=== PATIENT | male | born 1985 | race Caucasian/White ===

== ENCOUNTER 2018-09-07 16:31 | Emergency (ER) | payer SELFPAY ==
[2018-09-07] MEDS ORDERED: Lidocaine 1% INJ* 10 MG/ML 30 ML SDV INJ ONE (16:49)
--- NOTE | 2018-09-07 16:53 | ED ---
Throat Pain/Nasal Congestion - HPI Summary HPI Summary: 33-year-old male presents with swelling on left ear for the past week. He was seen at a Hospital and the area was drained. It was better but now is getting worse. He states it stopped draining anything. Denies any fevers chills. Denies any history of MRSA. Has no medical conditions. Tetanus up-to-date. states that it is interfering with his hearing. - History of Current Complaint Chief Complaint: EDEarPain Time Seen by Provider: 09/07/18 16:45 - Allergies/Home Medications Allergies/Adverse Reactions: Allergies Allergy/AdvReac Type Severity Reaction Status Date / Time No Known Allergies Allergy Verified 09/07/18 16:35 PMH/Surg Hx/FS Hx/Imm Hx Endocrine/Hematology History: Denies: Hx Anticoagulant Therapy Respiratory History: Denies: Hx Asthma - Cancer History Cancer Type, Location and Year: colon polyps Infectious Disease History: No Infectious Disease History: Denies: Traveled Outside the [place] in Last 30 Days - Family History Known Family History: Positive: Non-Contributory - Social History Alcohol Use: Rare Substance Use Type: Reports: None Smoking Status (MU): Never Smoked Tobacco Review of Systems Negative: Fever Negative: Chest Pain Negative: Shortness Of Breath Positive: Other - abscess left ear All Other Systems Reviewed And Are Negative: Yes Physical Exam Triage Information Reviewed: Yes Vital Signs On Initial Exam: Initial Vitals Temp Pulse Resp BP Pulse Ox 98.0 F 79 19 157/94 97 09/07/18 16:32 09/07/18 16:32 09/07/18 16:32 09/07/18 16:32 09/07/18 16:32 Vital Signs Reviewed: Yes Appearance: Positive: Well-Appearing Skin: Positive: Warm, Dry, Other - abscess to left ear Head/Face: Positive: Normal Head/Face Inspection Eyes: Positive: Normal, EOMI, JOSE, Conjunctiva Clear ENT: Positive: Normal ENT inspection, Pharynx normal, TMs normal Respiratory/Lung Sounds: Positive: Clear to Auscultation, Breath Sounds Present Cardiovascular: Positive: Normal, RRR Musculoskeletal: Positive: Normal Neurological: Positive: Normal Psychiatric: Positive: Normal Procedures - Incision and Drainage left ear Site: left ear Anesthesia: Local Instrument(s): Scalpel Diagnostics - Vital Signs Vital Signs Temp Pulse Resp BP Pulse Ox 09/07/18 16:32 98.0 F 79 19 157/94 97 - Laboratory Lab Statement: Any lab studies that have been ordered have been reviewed, and results considered in the medical decision making process. EENT Course/Dx - Course Course Of Treatment: 33-year-old male presents with swelling on left ear for the past week. He was seen at a Hospital and the area was drained. It was better but now is getting worse. He states it stopped draining anything. Denies any fevers chills. Denies any history of MRSA. Has no medical conditions. Tetanus up-to-date. states that it is interfering with his hearing. On exam has swelling noted on left ear. Performed a digital block and made incision. drainage was blood and may have had some clear liquid. this appears to be more like hematoma than abscess. applied pressure dressing. will place on clindamycin in case is infected. told follow up with dermatology. patient understand and agrees with plan. - Differential Diagnoses Differential Diagnoses: Other - abscess, hematoma, cellulitis - Diagnoses Provider Diagnoses: Ear hematoma, left Discharge - Sign-Out/Discharge Documenting (check all that apply): Patient Departure Patient Received Moderate/Deep Sedation with Procedure: No - Discharge Plan Condition: Good Disposition: HOME Prescriptions: Clindamycin Cap(NF) [Clindamycin Cap 300 mg Cap(NF)] 300 mg PO TID #29 cap Patient Education Materials: Hematoma (ED) Referrals: No Primary Care Phys,NOPCP [Primary Care Provider] - Additional Instructions: Take antibiotic three a day for 10 days, first dose given in ED keep compression on area for two days Take ibuprofen or Tylenol for pain every 6 hours Follow up with dermatology Return to ED if develop fever, area of redness spreads, or any new or worsening symptoms - Billing Disposition and Condition Condition: GOOD Disposition: Home
[2018-09-07] MEDS ORDERED: Clindamycin CAP* 150 MG PO ONE (17:13)
[2018-09-07 17:58] VITALS: BP 132/67
== END 2018-09-07 17:00 | disposition home or self-care (01) ==
LOC: ED 16:31
DX: S00.432A Contusion of left ear, initial encounter (principal); X58.XXXA Exposure to other specified factors, initial encounter
CPT/HCPCS: 10060; 87070; 87205; 96372; 99282; A9270-GY

== ENCOUNTER 2018-09-09 16:32 | Emergency (ER) | payer SELFPAY ==
--- NOTE | 2018-09-09 18:25 | ED ---
Throat Pain/Nasal Congestion - HPI Summary HPI Summary: Patient complains of abscess on external left ear 2 weeks. Patient states it has been drained twice in that time with one course of Keflex but abscess returns. Patient started on clindamycin today for same. Denies fever, cough, sore throat, CP, SOB, N/V/D, developing, change in urine, change in BM. Medical history is none. - History of Current Complaint Chief Complaint: EDEarPain Time Seen by Provider: 09/09/18 17:40 Hx Obtained From: Patient Onset/Duration: Gradual Onset, Lasting Weeks Severity: Mild Associated Signs And Symptoms: Positive: Negative Cough: None - Allergies/Home Medications Allergies/Adverse Reactions: Allergies Allergy/AdvReac Type Severity Reaction Status Date / Time No Known Allergies Allergy Verified 09/07/18 16:35 PMH/Surg Hx/FS Hx/Imm Hx Endocrine/Hematology History: Denies: Hx Anticoagulant Therapy Respiratory History: Denies: Hx Asthma History: Denies: Hx Dialysis Sensory History: Denies: Hx Eye Prosthesis Opthamlomology History: Denies: Hx Legally Blind EENT History: Denies: Hx Deafness Neurological History: Denies: Hx Developmental Delay - Cancer History Cancer Type, Location and Year: colon polyps Infectious Disease History: No Infectious Disease History: Denies: Traveled Outside the [place] in Last 30 Days - Family History Known Family History: Positive: Non-Contributory - Social History Alcohol Use: Rare Substance Use Type: Reports: None Smoking Status (MU): Heavy Every Day Tobacco Smoker Review of Systems Constitutional: Negative Eyes: Negative Positive: Other Cardiovascular: Negative Respiratory: Negative Gastrointestinal: Negative Genitourinary: Negative Musculoskeletal: Negative Skin: Negative Neurological: Negative Psychological: Normal All Other Systems Reviewed And Are Negative: Yes Physical Exam - Summary Physical Exam Summary: 2 cm x 2 cm in abscess on external left ear medial to auricle. Hearing intact. No purulent drainage. Mastoid is normal appearance. Ear canal exam normal. Triage Information Reviewed: Yes Vital Signs On Initial Exam: Initial Vitals Temp Pulse Resp BP Pulse Ox 99.7 F 68 16 135/91 97 09/09/18 16:38 09/09/18 16:38 09/09/18 16:38 09/09/18 16:38 09/09/18 16:38 Vital Signs Reviewed: Yes Appearance: Positive: Well-Appearing Skin: Positive: Warm Head/Face: Positive: Normal Head/Face Inspection Eyes: Positive: Normal ENT: Positive: Normal ENT inspection Neck: Positive: Supple Respiratory/Lung Sounds: Positive: Clear to Auscultation Cardiovascular: Positive: Normal Abdomen Description: Positive: Nontender Musculoskeletal: Positive: Normal Neurological: Positive: Normal Psychiatric: Positive: Normal AVPU Assessment: Alert - [place] Coma Scale Best Eye Response: 4 - Spontaneous Best Motor Response: 6 - Obeys Commands Best Verbal Response: 5 - Oriented Coma Scale Total: 15 Diagnostics - Vital Signs Vital Signs Temp Pulse Resp BP Pulse Ox 09/09/18 16:38 99.7 F 68 16 135/91 97 - Laboratory Lab Statement: Any lab studies that have been ordered have been reviewed, and results considered in the medical decision making process. EENT Course/Dx - Course Course Of Treatment: Patient complains of abscess on external left ear 2 weeks. Patient states it has been drained twice in that time with one course of Keflex but abscess returns. Patient started on clindamycin today for same. Denies fever, cough, sore throat, CP, SOB, N/V/D, developing, change in urine, change in BM. Medical history is none. Vital signs within normal limits. Patient opted to not have I&D at this time we'll continue with clindamycin. Patient understands he will return for worsening symptoms. - Diagnoses Provider Diagnoses: Abscess Discharge - Sign-Out/Discharge Documenting (check all that apply): Patient Departure Patient Received Moderate/Deep Sedation with Procedure: No - Discharge Plan Condition: Stable Disposition: HOME Patient Education Materials: Abscess (ED) Referrals: No Primary Care Phys,NOPCP [Primary Care Provider] - Additional Instructions: Continue to take antibiotics. Return to the ED for any new or worsening symptoms. - Billing Disposition and Condition Condition: STABLE Disposition: Home
[2018-09-09 18:31] VITALS: BP 145/83
== END 2018-09-09 18:30 | disposition home or self-care (01) ==
LOC: ED 16:32
DX: H60.02 Abscess of left external ear (principal); F17.200 Nicotine dependence, unspecified, uncomplicated
CPT/HCPCS: 99282

== ENCOUNTER 2018-09-11 16:55 | Emergency (ER) | payer SELFPAY ==
[2018-09-11 17:01] VITALS: BP 149/93
== END 2018-09-11 17:51 | disposition left against medical advice (07) ==
LOC: ED 16:55
DX: H93.8X2 Other specified disorders of left ear (principal); Z53.21 Procedure and treatment not carried out due to patient leaving prior to being seen by health care provider

== ENCOUNTER 2018-09-11 20:09 | Emergency (ER) | payer SELFPAY ==
[2018-09-11] MEDS ORDERED: Lidocaine 1% MPF* 2 ML VIAL INJ ONE (21:38)
[2018-09-11] MEDS ORDERED: Lidocaine 1% MPF ** 5 ML VIAL ONE (21:42)
[2018-09-11] MEDS ORDERED: Lidocaine 1% MPF ** 5 ML VIAL INJ ONE (22:22)
--- NOTE | 2018-09-11 22:41 | ED ---
Skin Complaint - HPI Summary HPI Summary: 33-year-old male presents with complaints of persistent swelling of his left earlobe. Patient was seen at this facility on 09/07/2018 began on 09/09/2018 for the same. He states symptoms initially began 2 weeks ago and he was evaluated at [facility] in [facility] where he was treated for an abscess of the left earlobe. He states that an I&D was performed and he was started on cephalexin at that time. States symptoms were improving after about a week started developing increased swelling again. On 09/07/2018 a second incision and drainage was performed. Some clear/bloody drainage was obtained and it was felt at that time that this likely represented a hematoma rather than abscess however he was started on clindamycin 300 mg 3 times a day to treat for possible infection. Patient returned here on 09/09/2018 as the wound closed and he was starting to note some swelling again but an I&D was deferred at that time. Patient states that the swelling has continued to worsen. Denies any pain, fever, or chills. - History of Current Complaint Chief Complaint: EDEarPain Time Seen by Provider: 09/11/18 21:12 Stated Complaint: LT EAR SWOLLEN PER PT Hx Obtained From: Patient Pain Intensity: 1 - Allergy/Home Medications Allergies/Adverse Reactions: Allergies Allergy/AdvReac Type Severity Reaction Status Date / Time No Known Allergies Allergy Verified 09/11/18 17:01 PMH/Surg Hx/FS Hx/Imm Hx Previously Healthy: Yes Endocrine/Hematology History: Denies: Hx Anticoagulant Therapy Respiratory History: Denies: Hx Asthma History: Denies: Hx Dialysis Sensory History: Denies: Hx Eye Prosthesis, Hx Legally Blind, Hx Deafness Opthamlomology History: Denies: Hx Eye Prosthesis, Hx Legally Blind Neurological History: Denies: Hx Developmental Delay - Cancer History Cancer Type, Location and Year: colon polyps - Surgical History Surgical History: None Infectious Disease History: No Infectious Disease History: Denies: Traveled Outside the [place] in Last 30 Days - Family History Known Family History: Positive: Non-Contributory - Social History Occupation: Unemployed Lives: With Family Alcohol Use: Rare Substance Use Type: Reports: None Smoking Status (MU): Heavy Every Day Tobacco Smoker Review of Systems Negative: Fever, Chills Negative: Ear Ache Cardiovascular: Negative Respiratory: Negative Gastrointestinal: Negative Genitourinary: Negative Musculoskeletal: Negative Skin: Other - See HPI Neurological: Negative All Other Systems Reviewed And Are Negative: Yes Physical Exam - Summary Physical Exam Summary: GENERAL APPEARANCE: Well developed, well nourished, alert and cooperative, and appears to be in no acute distress. EYES: Conjunctiva clear. No drainage. EARS: 2 cm nontender cystic lesion with fluctuance noted to the inner ear lobe immediately lateral to the external auditory canal. No erythema or drainage noted. External auditory canals and tympanic membranes clear, hearing grossly intact. NOSE: No nasal discharge. THROAT: Pharynx normal. No tonsilar inflammation, swelling, exudate, or lesions. Uvula midline. Oral cavity normal. Teeth and gingiva in good general condition. NECK: Neck supple, non-tender without lymphadenopathy. CARDIAC: Normal S1 and S2. No S3, S4 or murmurs. Rhythm is regular. There is no peripheral edema, cyanosis or pallor. Extremities are warm and well perfused. Capillary refill is less than 2 seconds. Peripheral pulses intact. LUNGS: Clear to auscultation without rales, rhonchi, wheezing or diminished breath sounds. ABDOMEN: Positive bowel sounds. Soft, nondistended, nontender. No guarding or rebound. No masses or hepatosplenomegally. MUSKULOSKELETAL: ROM intact to all extremities. No joint erythema or tenderness. Normal muscular development. Normal gait. SKIN: Skin normal color, texture and turgor. Triage Information Reviewed: Yes Vital Signs On Initial Exam: Initial Vitals Temp Pulse Resp BP Pulse Ox 98.2 F 79 18 131/70 95 09/11/18 20:15 09/11/18 20:15 09/11/18 20:15 09/11/18 20:15 09/11/18 20:15 Vital Signs Reviewed: Yes Procedures - Procedure Summary Procedure Summary: PROCEDURE NOTE: Incision and drainage PROCEDURE: Informed consent was obtained and timeout protocol was performed prior to initiating the procedure. The skin was prepped with Betadine and the area draped in the usual manner. The site was anesthetized with 0.5 ml of 1% lidocaine. A 1 cm linear incision was made and a moderate amount of clear/ bloody drainage expressed. The wound was packed with 1/4 inch plain gauze packing. A gauze dressing was then placed by the RN. Bleeding was minimal. The patient tolerated the procedure well without complications. Standard post- procedure care is explained and return precautions were given. Diagnostics - Vital Signs Vital Signs Temp Pulse Resp BP Pulse Ox 09/11/18 20:15 98.2 F 79 18 131/70 95 - Laboratory Lab Statement: Any lab studies that have been ordered have been reviewed, and results considered in the medical decision making process. Course/Dx - Course Course Of Treatment: 33-year-old male presents with complaints of persistent swelling of his left earlobe. Patient was seen at this facility on 09/07/2018 began on 09/09/2018 for the same. He states symptoms initially began 2 weeks ago and he was evaluated at [facility] in [facility] where he was treated for an abscess of the left earlobe. He states that an I&D was performed and he was started on cephalexin at that time. States symptoms were improving after about a week started developing increased swelling again. On 09/07/2018 a second incision and drainage was performed. Some clear/bloody drainage was obtained and it was felt at that time that this likely represented a hematoma rather than abscess however he was started on clindamycin 300 mg 3 times a day to treat for possible infection. Patient returned here on 2018 as the wound closed and he was starting to note some swelling again but an I&D was deferred at that time. Patient states that the swelling has continued to worsen. Denies any pain, fever, or chills. Afebrile. Vital signs stable. Patient had a 2 cm nontender cystic lesion with fluctuance noted to the inner ear lobe immediately lateral to the external auditory canal. No erythema or drainage noted. Remainder of exam was unremarkable. An I&D was performed, clear/bloody drainage was obtained, and the wound was packed with plain 1/4 inch gauze packing. A dressing was applied by the RN. The patient was instructed to continue his antibiotics as directed. He is to follow-up here or at urgent care in 2 days for a recheck of the wound. Anticipatory guidance and warning symptoms were reviewed with the patient. Verbalizes understanding and agrees with plan of care. - Differential Diagnoses - Skin Complaint Differential Diagnoses: Abscess, Cellulitis, MRSA, Other - cyst - Diagnoses Provider Diagnoses: Cyst on ear Discharge - Sign-Out/Discharge Documenting (check all that apply): Patient Departure Patient Received Moderate/Deep Sedation with Procedure: No - Discharge Plan Condition: Stable Disposition: HOME Patient Education Materials: Cyst (ED) Referrals: No Primary Care Phys,NOPCP [Primary Care Provider] - Additional Instructions: We were able to drain a large amount of clear-bloody fluid from the lesion to your ear. Based on its appearance I suspect this represents a cyst rather than an abscess. I would , however, like you to complete the antibiotics that were started as directed in case of an underlying infection. A small piece of gauze was placed inside the cavity of the wound in order to keep the wound open and allow it to drain. Leave this in place until you follow up however if it falls out accidentally do NOT try to reinsert. Just leave the wound open and allow it to drain. Keep the wound covered with a gauze dressing to collect any drainage. You should change this at least once a day and any time it becomes wet or soiled. Take acetaminophen (Tylenol) or ibuprofen (Advil, Motrin) according to directions as needed for any pain. Return here or at urgent care in 2 days to have the wound recheck and packing removed. They may want to repack the wound at that time. Return to the emergency room if you develop a fever greater than 100.5 F, have severe pain that is not managed with acetaminophen or ibuprofen, redness that spreads, increased swelling, or any worsening of symptoms. - Billing Disposition and Condition Condition: STABLE Disposition: Home
[2018-09-11 22:56] VITALS: BP 123/57
== END 2018-09-11 22:55 | disposition home or self-care (01) ==
LOC: ED 20:09
DX: L72.9 Follicular cyst of the skin and subcutaneous tissue, unspecified (principal); F17.210 Nicotine dependence, cigarettes, uncomplicated
CPT/HCPCS: 10060; 96372; 99281